=== PATIENT | female | born 2000 | race Caucasian/White ===

== ENCOUNTER 2023-05-10 00:07 | Emergency (ER) | payer OTHER, SELFPAY ==
[2023-05-10 00:09] VITALS: PULSE 93; RESP 18; TEMP 36.4; O2SAT 98; BMI 30.7
[2023-05-10] MEDS: 0.9% Normal Saline (1000mL) 1,000 ML 999 ML IV ×2 (00:42→01:43)
[2023-05-10] MEDS: Ondansetron 4 MG/2 ML Vial IV (00:42)
[2023-05-10] MEDS: Famotidine 200 MG/20 ML MDV 20 MG in 0.9% Normal Saline (Pres. free 8 ML 300 MG IV (00:46)
--- NOTE | 2023-05-10 02:26 | EDS_ITS ---
HPI History of Present Illness Chief Complaint: ETOH Intox Informant: friend Narrative Narrative: Patient is a 23-year-old female brought in by friend secondary to alcohol intoxication. Friend states that the patient will occasionally go out and constitution party. They state this evening she was drinking liquor and beer. They state that she became extremely intoxicated and began having bouts of nausea and vomiting. Friend stated they have been with the patient the entire time and that she was never on her back to a point where she could have aspirated. They deny any trauma. They state that they do not believe there was any potential for coingestion of illicit substance. At this time however the patient has had persistent vomiting and with her depressed mental status they are afraid that she could aspirate and have difficulty breathing and therefore brought her to the hospital for evaluation [facility] Medical History unable to obtain unable to obtain Home Medications ondansetron 4 mg disintegrating tablet 4 mg PO TID PRN nausea and vomiting #21 tabs 05/10/23 [Rx Last Taken Unknown] Social History Smoking Status: Never smoker ROS ROS ED Review of Systems ROS Unobtainable: due to mental status and other Details: Unable to obtain review of systems based on patient's mental status from intoxication EXAM Physical Exam Const Vital Signs: 05/10/23 00:09 Temperature 97.6 F L Temperature Source Oral Pulse Rate 93 Respiratory Rate 18 Pulse Ox 98 Oxygen Delivery Method Room Air Positive well nourished and well developed General Appearance ED: well developed HEENT Reports moist mucous membranes HEENT Narrative: No tongue or cheek biting noted to suggest seizure No airway edema or compromise No signs of secondary infection in the posterior pharynx No signs of depressed or basilar skull fracture Eyes EOMs intact bilaterally Eyes Narrative: Pupils are dilated and sluggish to respond to light with scleral injection consistent with alcohol use General Eye ED: Negative for scleral icterus Neck supple Neck Narrative: No bony deformity or step-off of the cervical spine Chest Wall palpation of chest normal Resp normal respiratory effort and clear to auscultation bilaterally Resp Narrative: No nasal flaring retractions tachypnea or accessory muscle use Cardio regular rate and regular rhythm GI non-tender and non-distended Auscultation: hyperactive bowel sounds Palpation: soft Extremity normal to inspection Neuro CN's II-XII intact bilaterally Neuro Narrative: Patient is lethargic consistent with alcohol intoxication without focal neurologic deficit noted Sensorium / Orientation: lethargic Skin no rashes or lesions noted and no wounds General Skin Exam: Negative for jaundice MDM MDM MDM Narrative Medical decision making narrative: Patient presented to the ER with stable vitals. Her history and exam is consistent with acute alcohol intoxication. With friends reported bouts of vomiting there is concern for aspiration but her breath sounds are clear and her pulse ox is 98 to 100% on room air and she has no signs of respiratory distress therefore my concern for this is low and I do not feel need for chest x-ray. Patient also has no signs of head trauma and friends state they have been with her throughout the night and denies any trauma and therefore there is no need for head CT. We also discussed possible coingestion but friend states that they have been with her throughout the evening and they do not believe there was any illicit substance ingested with the alcohol and therefore I will refrain from a drug screen at this time. The patient was given 2 L of fluid Zofran and Pepcid and watched in the ER. After medication the patient's vomiting stopped and she was held in the ER and her mental status improved. At this time upon reevaluation and there are no neurologic deficits no report of self-harm and vitals remained stable and therefore she is otherwise safe for discharge History & Record Review Discussion w/independent historian: Friend Discharge Plan Triage Chief Complaint: ETOH Intox ED Provider: Remy Nguyen Dx/Rx/DC Orders Clinical Impression: Alcohol intoxication, Nausea & vomiting Instructions: ED Alcohol Intoxication Prescriptions: New ondansetron 4 mg tablet,disintegrating 4 mg PO TID PRN (Reason: nausea and vomiting) Qty: 21 0RF Referrals: Alfred Miguel MD [Med Staff - Active Staff] - Disposition Disposition: Home, Self Care
[2023-05-10 03:22] VITALS: BP 109/67; PULSE 69; RESP 18; O2SAT 100
== END 2023-05-10 03:22 | disposition home or self-care (01) ==
PROVIDERS: Emergency Provider Emergency Medicine; PCP Family Medicine; Visit Provider Emergency Medicine
DX: F10.129 Alcohol abuse with intoxication, unspecified (principal); R11.2 Nausea with vomiting, unspecified
CPT/HCPCS: 96361; 96374; 96375; 99285; J7030; A4216; J2405; J3490